=== PATIENT | female | born 1940 | race Two or more races ===

== ENCOUNTER 2025-03-05 12:48 | Inpatient (IN) | payer MEDICARE, OTHER ==
[~2025-03-05] VITALS: Ht 162.6 cm; Wt 85.4 kg
--- NOTE | 2025-03-05 13:01 | ED.PDOC ---
SOB-HPI HPI Comments 85 y/o F, with PMHx of DM and CAD presents to the ED for CC of shortness of breath. Patient states, she has been experiencing symptoms of nasal drainage, cough, and shortness of breath x6days. Patient reports, to have experienced similar symptoms in the past d/t sinusitis. Patient denies fever, chills, sore- throat, headache, palpitations, or chest pain. No other symptoms or modifying factors are present at this time. Chief Complaint: Shortness of Breath Time Seen by MD: 13:00 Primary Care Provider: RACHANA Macias notes: Nurses Notes, Medications, Allergies Information Source: Patient Mode of Arrival: Ambulatory Severity: Moderate Timing: Days Duration: Since onset Context: At Rest PE Risk Factors: None History of: None Prehospital treatment: None Modifying Factors: Nothing Associated Signs and Symptoms: Cough, Nasal Congestion Past Medical History PAST MEDICAL HISTORY: CAD, DM Surgical History: Denies all surgeries SIGNAL MAINTAINER HELPER History: Denies all SIGNAL MAINTAINER HELPER Hx Family History Family History: Unknown Social History Smoker: Non-Smoker Alcohol: Denies ETOH Use Drugs: Denies Drug Use Lives In: Home Constitutional: denies: chills, diaphoresis, fatigue, fever, malaise, sweats, weakness, others EENTM: reports: nasal discharge; denies: blurred vision, double vision, ear bleeding, ear discharge, ear drainage, ear pain, ear ringing, eye pain, eye redness, hearing loss, mouth pain, mouth swelling, nose bleeding, nose congestion, nose pain, photophobia, tearing, throat pain, throat swelling, voice changes, others Respiratory: reports: cough, shortness of breath; denies: hemoptysis, orthopnea, SOB at rest, SOB with excertion, stridor, wheezing, others Cardiovascular: denies: chest pain, dizzy spells, diaphoresis, Dyspnea on exertion, edema, irregular heart beat, left arm pain, lightheadedness, palpitations, PND, syncope, others Gastrointestinal: denies: abdomen distended, abdominal pain, blood streaked bowels, constipated, diarrhea, dysphagia, difficulty swallowing, hematemesis, melena, nausea, poor appetite, poor fluid intake, rectal bleeding, rectal pain, vomiting, others Genitourinary: denies: abnormal vagina bleeding, burning, dyspareunia, dysuria, flank pain, frequency, hematuria, incontinence, pain, , vagina discharge, urgency, others Neurological: denies: dizziness, fainting, headache, left sided numbness, left sided weakness, numbness, paresthesia, pre-existing deficit, right sided numbness, right sided weakness, seizure, speech problems, tingling, tremors, weakness, others Musculoskeletal: denies: back pain, gout, joint pain, joint swelling, muscle pain, muscle stiffness, neck pain, others Integumetry: denies: bruises, change in color, change in hair/nails, dryness, laceration, lesions, lumps, rash, wounds, others Allergic/Immunocompromised: denies: Difficulty Healing, Frequent Infections, Hives, Itching, others Hematologic/Lymphatic: denies: anemia, blood clots, easy bleeding, easy bruising, swollen glands, others Endocrine: denies: excessive hunger, excessive sweating, excessive thirst, excessive urination, flushing, intolerance to cold, intolerance to heat, unexplained weight gain, unexplained weight loss, others Psychiatric: denies: anxiety, bipolar disorder, depression, hopeless, panic disorder, schizophrenia, sleepless, suicidal, others All Other Systems: Reviewed and Negative Physical Exam General Appearance: No Apparent Distress, Normal HEENT: Normal ENT Inspection, Pharynx Normal Neck: Full Range of Motion, Non-Tender, Normal, Normal Inspection Respiratory: Chest Non-Tender, Lungs Clear, No Accessory Muscle Use, No Respiratory Distress, Other (TACHYPNEIC) Cardiovascular: No Edema, No Murmur, No Gallop, Normal Peripheral Pulses, Regular Rate/Rhythm Breast Exam: Deferred Gastrointestinal: No Organomegaly, Non Tender, No Pulsatile Mass, Normal Bowel Sounds, Soft Genitalia: Deferred Pelvic: Deferred Rectal: Deferred Extremities: No calf tenderness, Normal capillary refill, Normal inspection, Normal range of motion, Non-tender, No pedal edema Musculoskeletal : Apperance: Normal Neurologic: Alert, bologna lacer II-XII nml as Tested, No Motor Deficits, Normal Affect, Normal Mood, No Sensory Deficits Cerebellar Function: Normal Reflexes: Normal Skin: Dry, Normal Color, Warm Lymphatic: No Adenopathy Was a procedure done? Was a procedure done?: No Differential Dx Differential Diagnosis: Bronchitis, Pneumonia, Sinusitis, Pharyngitis, URI X-Ray, Labs, Meds, VS Vital Signs Date Time Temp Pulse Resp B/P (MAP) Pulse Ox O2 Delivery O2 Flow Rate FiO2 03/05/25 16:03 68 18 156/61 (92) 97 03/05/25 12:54 97.8 69 22 151/81 97 97.8 Lab Test 03/05/25 14:21 03/05/25 13:27 Range/Units Troponin I High Sensitivity 11 13 </=34 ng/L White Blood Count 5.9 4.4-10.8 10^3/uL Red Blood Count 4.51 4.0-5.20 10^6/uL Hemoglobin 13.6 12.2-16.2 g/dL Hematocrit 41.0 36.0-46.0 % Mean Corpuscular Volume 91.0 80.0-100.0 fL Mean Corpuscular Hemoglobin 30.2 28.0-32.0 pg Mean Corpuscular Hemoglobin Concent 33.2 32.0-36.0 g/dL Red Cell Distribution Width 13.2 11.8-14.3 % Platelet Count 163 140-450 10^3/uL Mean Platelet Volume 8.4 6.9-10.8 fL Neutrophils (%) (Auto) 58.8 37.0-80.0 % Lymphocytes (%) (Auto) 28.8 10.0-50.0 % Monocytes (%) (Auto) 8.2 0.0-12.0 % Eosinophils (%) (Auto) 3.9 0.0-7.0 % Basophils (%) (Auto) 0.3 0.0-2.0 % Neutrophils # (Auto) 3.4 1.6-8.6 10 ^3/uL Lymphocytes # (Auto) 1.7 0.4-5.4 10 ^3/uL Monocytes # (Auto) 0.5 0-1.3 10 ^3/uL Eosinophils # (Auto) 0.2 0-0.8 10 ^3/uL Basophils # (Auto) 0 0-0.2 10 ^3/uL Nucleated Red Blood Cells 0.1 % Sodium Level 144 136-145 mmol/L Potassium Level 4.5 3.5-5.1 mmol/L Chloride Level 109 H 98-107 mmol/L Carbon Dioxide Level 25 20-31 mmol/L Anion Gap 10 5-15 Blood Urea Nitrogen 11 9-23 mg/dL Creatinine 1.12 H 0.550-1.02 mg/dL Glomerular Filtration Rate Calc 48 >90 mL/min BUN/Creatinine Ratio 9.8 L 10.0-20.0 Serum Glucose 132 H 74-106 mg/dL Calcium Level 9.7 8.7-10.4 mg/dL B-Type Natriuretic Peptide 65.31 0-100 pg/mL [address] [address] Ph: [phone] DIAGNOSTIC IMAGING Diagnostic Imaging Report : [id number] Signed PATIENT: JUANA MEJIA ACCT: [id number] UNIT: [id number] : 1940 LOC: ER ROOM / BED: / AGE / SEX: 85 / F ADM STATUS: REG ER SERVICE 1313 ORDERING PHYSICIAN: CALVIN ALEXANDER MD PROCEDURE(s): CXRP - CHEST PORTABLE REASON: sob ORDER NUMBER(s): [id number], ACCESSION NUMBER(s): [id number] CHEST RADIOGRAPH INDICATION: sob TECHNIQUE: Single frontal view of the chest was obtained COMPARISON: XR CHEST 1 VIEW on DOS: 10/02/24 FINDINGS: Lines and Tubes: None Lungs: No focal consolidation. Diffuse reticular opacities may reflect atypical pneumonia versus mild interstitial edema. Pleura: No effusion. No pneumothorax. Cardiomediastinal contours: Unremarkable Bones: No acute osseous abnormality. IMPRESSION: 1. Diffuse reticular opacities may reflect atypical pneumonia versus mild interstitial edema. ATED BY: MIMI DORANTES MD DICTATED DATE/TIME: 03/05/251358 SIGNED BY: MIMI DORANTES MD SIGNED DATE/TIME: 03/05/25 1359 CC: Time of 1ST Reevaluation: 13:30 Reevaluation 1ST: Unchanged Patient Education/Counseling: Diagnosis, Treatment Family Education/Counseling: No Family Present SEPSIS Sepsis Screen Physician Orders Chest Portable (03/05/25 13:13) Electrocardigram (03/05/25 13:13) Troponin-I Hs (03/05/25 16:13) Electrocardigram (03/05/25 14:13) Electrocardigram (03/05/25 16:13) Vital Signs Date Time Temp Pulse Resp B/P (MAP) Pulse Ox O2 Delivery O2 Flow Rate FiO2 03/05/25 16:03 68 18 156/61 (92) 97 03/05/25 12:54 97.8 69 22 151/81 97 97.8 Laboratory Tests Test 03/05/25 13:27 White Blood Count 5.9 10^3/uL (4.4-10.8) Departure 1 Departure Time of Disposition: 17:08 (Patient with a worsening shortness of breath concerning for atypical pneumonia. Patient we will empirically started on antibiotics. Patient we will not be given the fall IV fluid bolus as patient appears clinically volume overloaded. We will admit patient for further workup and expert consultation) Impression: Primary Impression: Pneumonia Additional Impression: Acute dyspnea Disposition: ADMITTED INPATIENT Admit to: Tele Condition: Guarded Critical Care Note Critical Care Time?: Yes Critical care comment: Suspected sepsis Authorized and Performed by: Calvin Alexander MD Total critical care time: Approximately 39 minutes Due to a high probability of clinically significant, life threatening deterioration, the patient required my highest level of preparedness to intervene emergently and I personally spent this critical care time directly and personally managing the patient. This critical care time included obtaining a history; examining the patient; pulse oximetry; ordering and review of studies; arranging urgent treatment with development of a management plan; evaluation of patient's response to treatment; frequent reassessment; and, discussions with other providers. This critical care time was performed to assess and manage the high probability of imminent, life-threatening deterioration that could result in multi-organ failure. It was exclusive of separately billable procedures and treating other patients and teaching time. Please see my other sections and the rest of the note for further information on patient assessment and treatment. Stability Stability form required: No Heart Score Heart Score: Heart Score Response (Comments) Value History N/A 0 EKG N/A 0 Age N/A 0 Risk Factors N/A 0 Troponin N/A 0 Total 0 I personally scribed for CALVIN ALEXANDER MD ([email or web address]) on 03/05/25 at 13:01. Electronically submitted by Christine Gilbert ([email or web address]). I personally scribed for CALVIN ALEXANDER MD ([email or web address]) on 03/05/25 at 13:07. Electronically submitted by Christine Gilbert ([email or web address]). I personally scribed for CALVIN ALEXANDER MD ([email or web address]) on 03/05/25 at 13:19. Electronically submitted by Christine Gilbert ([email or web address]). I personally scribed for CALVIN ALEXANDER MD ([email or web address]) on 03/05/25 at 13:21. Electronically submitted by Christine Gilbert ([email or web address]). I personally scribed for CALVIN ALEXANDER MD ([email or web address]) on 03/05/25 at 14:23. Electronically submitted by Christine Gilbert ([email or web address]). CALVIN ALEXANDER MD Mar 05, 2025 13:01
[2025-03-05 13:39] LABS: Hematocrit 41.0 % (36.0-46.0); Hemoglobin 13.6 g/dL (12.2-16.2); Mean Corpuscular Hemoglobin 30.2 pg (28.0-32.0); Mean Corpuscular Volume 91.0 fL (80.0-100.0); Nucleated Red Blood Cells % 0.1 %
[2025-03-05 13:48] LABS: Potassium 4.5 mmol/L (3.5-5.1); Sodium 144 mmol/L (136-145)
[2025-03-05 13:49] LABS: Anion Gap 10 (5-15); Calcium 9.7 mg/dL (8.7-10.4); Carbon Dioxide 25 mmol/L (20-31)
[2025-03-05 13:54] LABS: BUN/Creatinine Ratio 9.8 (10.0-20.0); Blood Urea Nitrogen 11 mg/dL (9-23); Chloride 109 mmol/L (98-107); Glucose 132 mg/dL (74-106)
--- NOTE | 2025-03-05 14:01 | DVH ---
CHEST RADIOGRAPH INDICATION: sob TECHNIQUE: Single frontal view of the chest was obtained COMPARISON: XR CHEST 1 VIEW on DOS: 10/02/24 FINDINGS: Lines and Tubes: None Lungs: No focal consolidation. Diffuse reticular opacities may reflect atypical pneumonia versus mild interstitial edema. Pleura: No effusion. No pneumothorax. Cardiomediastinal contours: Unremarkable Bones: No acute osseous abnormality. IMPRESSION: 1. Diffuse reticular opacities may reflect atypical pneumonia versus mild interstitial edema.
[2025-03-05 19:35] VITALS: RESP 18; O2SAT 99
[2025-03-05] MEDS: AZITHROMYCIN 250 MG TAB PO ONE (19:47)
[2025-03-05] MEDS: CEFEPIME 2GM/50ML NS 50 ML IV ONE (20:05)
[2025-03-05] MEDS ORDERED: ONDANSETRON HCL 4 MG/2 ML VIAL IV PRN (22:15)
[2025-03-05 22:36] VITALS: BP 155/61; PULSE 77; RESP 20; O2SAT 100
[2025-03-06] VITALS: TEMP 99.2
[2025-03-06] MEDS: ACETAMINOPHEN 325 MG TAB PO SCH
[2025-03-06 00:18] LABS: INR 1.04 (0.9-1.15); Partial Thromboplastin Time 24.3 SEC (24.5-34.5); Prothrombin Time 11.0 sec (9.3-11.8)
[2025-03-06] MEDS ORDERED: ATOR40TA52 PO (00:41)
[2025-03-06] MEDS ORDERED: DEXTROSE (50%) 50ML SYRG IV PRN (00:45)
--- NOTE | 2025-03-06 00:46 | DVHHPRES ---
History of Present Illness Resident Creating Document: NEMO GOODMAN RESIDENT History of Present Illness Patient is a 85-year-old female with past medical history of insulin-dependent diabetes mellitus, hyperlipidemia, sinusitis, CAD status post 1 stent placement, who presented to the ED with chief complaints of shortness of breath, cough associated with fever, chills, nausea, chest tightness since 6 days. Patient also complains of nasal congestion and postnasal drip since 3 days. Patient reports to have similar symptoms in the past due to sinusitis. Patient denies any sore throat, headaches, chest pain, palpitations, nausea, vomiting, hematemesis, hemoptysis, dysuria. PMHx: Diabetes mellitus, CAD, sinusitis, hyperlipidemia PSHx: denies Family history: reviewed, noncontributory Social history: denies smoking, drinking, drug use Home medication: insulin 25, atorvastatin, aspirin, gabapentin, metoprolol succinate Allergic history: denies Patient seen in the lobby. Patient complains of shortness of breath and cough associated with sputum, and chest tightness. patient is on 2 L oxygen, denies home oxygen use. patient denies any fever, chills, nausea, vomiting, hemoptysis, chest pain, palpitations, headaches. Review of Systems Constitutional: No: Fever, Chills, Sweats, Weakness, Malaise, Other Eyes: No: Pain, Vision change, Conjunctivae inflammation, Eyelid inflammation, Other, Redness ENT: No: Ear pain, Ear discharge, Nose pain, Nose discharge, Nose congestion, Mouth pain, Mouth swelling, Throat pain, Throat swelling, Other Respiratory: Cough, Shortness of breath, SOB with excertion, Sputum; No: Dry, Wheezing, Hemoptysis, Pleuritic Pain, Wheezing, Other Cardiovascular: No: Chest Pain, Palpitations, Orthopnea, Paroxysmal Noc. Dyspnea, Edema, Lt Headedness, Other Gastrointestinal: No: Nausea, Vomiting, Abdominal Pain, Diarrhea, Constipation, Melena, Hematochezia, Other Genitourinary: No Dysuria, No Frequency, No Incontinence, No Hematuria, No Retention, No Other Musculoskeletal: No: other, neck pain, shoulder pain, arm pain, back pain, hand pain, leg pain, foot pain Skin: No: Rash, Lesions, Jaundice, Bruising, Other Neurological: No: Weakness, Numbness, Incoordination, Change in speech, Confusion, Seizures, Other Allergies: Coded Allergies: UNOBTAINABLE (Unverified , 06/19/14) PLEASE UPDATE PT'S ALLERGY ON THE COMPUTER. HOLD ANY ACTIVE MEDICATIONS THAT PT HAD SEVERE ALLERGY TO Medications Current Medications Medications Dose Ordered Sig/[place] Route Start Time Stop Time Status Last Admin Dose Admin Ondansetron HCl 4 mg Q4HP PRN IV 03/05/25 22:15 Enoxaparin Sodium 40 mg DAILY SC 03/06/25 10:00 Acetaminophen 650 mg Q6HR PO 03/06/25 00:00 03/06/25 00:00 650 MG Exam Vital Signs Vital Signs Date Time Temp Pulse Resp B/P (MAP) Pulse Ox O2 Delivery O2 Flow Rate FiO2 03/06/25 00:00 99.2 03/05/25 22:36 77 20 155/61 (92) 100 03/05/25 19:35 Nasal Cannula* 2 28 Exam General: Patient alert and oriented in person, place and time. Patient following commands. HEENT: Normocephalic, atraumatic, moist mucous membranes Respiratory/pulmonary: Bilateral crackles heard on auscultation Cardiovascular: Normal heart sounds S1 and S2 with no associated murmurs Abdomen: Abdomen nondistended, there is no pain to palpation in any of the abdominal quadrants, no palpable masses. Extremities: There is no peripheral edema present at the lower extremities. Peripheral Pulses: 3+ Radial (R). 3+ Radial (L). 3+ Dorsalis pedis (R). 3+ Dorsalis pedis(L) Skin: No rashes or pruritus, there is no sacral edema present at this time. Neurological: Intact cranial nerves with no focal neurologic deficits Labs/Xrays Labs Test 03/05/25 23:46 03/05/25 18:43 03/05/25 17:03 03/05/25 13:27 Range/Units Prothrombin Time 11.0 9.3-11.8 sec Prothrombin Time INR 1.04 0.9-1.15 Activated Partial Thromboplast Time 24.3 L 24.5-34.5 SEC Lactic Acid Level 1.9 0.4-2.0 mmol/L Magnesium Level 2.0 1.6-2.6 mg/dL Troponin I High Sensitivity 9 </=34 ng/L White Blood Count 5.9 4.4-10.8 10^3/uL Red Blood Count 4.51 4.0-5.20 10^6/uL Hemoglobin 13.6 12.2-16.2 g/dL Hematocrit 41.0 36.0-46.0 % Mean Corpuscular Volume 91.0 80.0-100.0 fL Mean Corpuscular Hemoglobin 30.2 28.0-32.0 pg Mean Corpuscular Hemoglobin Concent 33.2 32.0-36.0 g/dL Red Cell Distribution Width 13.2 11.8-14.3 % Platelet Count 163 140-450 10^3/uL Mean Platelet Volume 8.4 6.9-10.8 fL Neutrophils (%) (Auto) 58.8 37.0-80.0 % Lymphocytes (%) (Auto) 28.8 10.0-50.0 % Monocytes (%) (Auto) 8.2 0.0-12.0 % Eosinophils (%) (Auto) 3.9 0.0-7.0 % Basophils (%) (Auto) 0.3 0.0-2.0 % Neutrophils # (Auto) 3.4 1.6-8.6 10 ^3/uL Lymphocytes # (Auto) 1.7 0.4-5.4 10 ^3/uL Monocytes # (Auto) 0.5 0-1.3 10 ^3/uL Eosinophils # (Auto) 0.2 0-0.8 10 ^3/uL Basophils # (Auto) 0 0-0.2 10 ^3/uL Nucleated Red Blood Cells 0.1 % Sodium Level 144 136-145 mmol/L Potassium Level 4.5 3.5-5.1 mmol/L Chloride Level 109 H 98-107 mmol/L Carbon Dioxide Level 25 20-31 mmol/L Anion Gap 10 5-15 Blood Urea Nitrogen 11 9-23 mg/dL Creatinine 1.12 H 0.550-1.02 mg/dL Glomerular Filtration Rate Calc 48 >90 mL/min BUN/Creatinine Ratio 9.8 L 10.0-20.0 Serum Glucose 132 H 74-106 mg/dL Calcium Level 9.7 8.7-10.4 mg/dL B-Type Natriuretic Peptide 65.31 0-100 pg/mL SEPSIS Sepsis Screen Date sepsis recognized/suspect: Mar 05, 2025 Time Sepsis recognized/suspect: 1936 Recent Procedure: No On Antibiotic Therapy: No Respiratory Rate >20: No Heart Rate >90: No Temp<36 C (96.8 F) or >38.3 C: No SBP <90 or MAP <65 mmHG: No New Acute Mental Status Change: No Is the patient on CPAP, BIPAP,: No Physician Orders Blood Culture (03/05/25 17:05) Admit (03/05/25 22:12) Ondansetron Hcl (Zofran) (03/05/25 22:15) Enoxaparin Sodium (Lovenox) (03/06/25 10:00) Complete Blood Count (03/06/25 04:00) Comprehensive Metabolic Panel (03/06/25 04:00) Condition: Serious (03/05/25 22:12) Acetaminophen Tablet (Tylenol Tablet) (03/06/25 00:00) Bedrest With Bathroom Privileg (03/05/25 22:12) Oxygen By Nasal Cannula (03/05/25 22:12) Stat Ekg For Chest Pain (03/05/25 22:12) Notify Md Of Changes From Base (03/05/25 22:12) Roll Changer For 24 Hours (03/05/25 22:12) Emergency Dysrhythmia Protocol (03/05/25 22:12) Rhythm Strips Once Every Shift (03/05/25 22:12) Covid19 Antigen Geovanna (03/05/25 ) Rapid Influenza A&B (03/05/25 22:12) Respiratory Culture W/ Gs (03/05/25 22:12) Urinalysis (03/05/25 23:31) Drug Screen (03/05/25 23:31) Ceftriaxone 2gm/50ml (Rocephin 2gm/50ml) (03/06/25 10:00) Azithromycin Tablet (Zithromax Tablet) (03/06/25 10:00) Albuterol Medneb (Ventolin Medneb) (03/06/25 06:00) Ipratropium Medneb (Atrovent Medneb) (03/06/25 06:00) Insulin Lantus (Glargine) (Lantus) (03/06/25 22:00) Glucose Blood (Accu-Chek Comfort Curve T (03/06/25 07:00) Insulin R (Human) (Insulin R) (03/06/25 22:00) Insulin R (Human) (Insulin R) (03/06/25 07:00) Dextrose 50% Syringe (03/06/25 00:45) Hemoglobin A1c (03/06/25 00:36) Thyroid Stimulating Hormone (03/06/25 00:36) Lipid Panel (03/06/25 00:36) Vitamin D, 25-Hydroxy (03/06/25 00:36) Atorvastatin (Lipitor) (03/06/25 22:00) Pantoprazole Tablet (Protonix Tablet) (03/06/25 06:00) Consistent Carb(Ccho)Diabetes (03/06/25 Breakfast) Vital Signs Date Time Temp Pulse Resp B/P (MAP) Pulse Ox O2 Delivery O2 Flow Rate FiO2 03/06/25 00:00 99.2 03/05/25 22:36 99.3 77 20 155/61 (92) 100 99.3 03/05/25 19:35 18 99 Nasal Cannula* 2 28 03/05/25 18:34 72 18 146/70 (95) 99 Laboratory Tests Test 03/05/25 13:27 03/05/25 18:43 White Blood Count 5.9 10^3/uL (4.4-10.8) Lactic Acid Level 1.9 mmol/L (0.4-2.0) Medications Medications Dose Ordered Sig/[place] Route Start Time Stop Time Status Last Admin Dose Admin Acetaminophen 650 mg Q6HR PO 03/06/25 00:00 03/06/25 00:00 650 MG Azithromycin 500 mg ONCE ONCE PO 03/05/25 17:15 03/05/25 17:16 DC 03/05/25 19:47 500 MG Cefepime HCl 50 ml @ 12.5 mls/hr ONCE ONCE IV 03/05/25 17:15 03/05/25 21:14 DC 03/05/25 20:05 12.5 MLS/HR Assessment/Plan Assessment/Plan Pneumonia Gram-positive/Gram-negative - chest x-ray showed Diffuse reticular opacities may reflect atypical pneumonia versus mild interstitial edema. - IV ceftriaxone - azithromycin - albuterol, ipratropium med neb - check COVID, influenza - check sputum culture Diabetes mellitus HbA1c - Lantus 25, moderate insulin sliding scale Hyperlipidemia - atorvastatin Morbid obesity BMI 32.3 - patient counseled on diet, exercise, lifestyle modification for 18 minutes Diet: consistent carbohydrate PPI prophylaxis: Protonix DVT prophylaxis: Lovenox Goals of care addressed with the patient for more than 27 minutes: Full code status Case discussed with Dr. Self , patient and nurse Plan discussed with: Patient My Orders Orders - NEMO GOODMAN RESIDENT Procedure Category Date Status Time Admit ADMIT 03/05/25 Transmitted 22:12 Ondansetron Hcl PHA 03/05/25 In Process (Zofran) 22:15 Enoxaparin Sodium PHA 03/06/25 In Process (Lovenox) 10:00 Complete Blood Count LAB 03/06/25 Logged 04:00 Comprehensive LAB 03/06/25 Logged Metabolic Panel 04:00 Condition: Serious [facility] 03/05/25 In Process 22:12 Acetaminophen Tablet PHA 03/06/25 In Process (Tylenol Tablet) 00:00 Bedrest With Bathroom [facility] 03/05/25 In Process Privileg 22:12 Oxygen By Nasal RT 03/05/25 Transmitted Cannula 22:12 Stat Ekg For Chest [facility] 03/05/25 In Process Pain 22:12 Notify Md Of Changes [facility] 03/05/25 In Process From Base 22:12 Roll Changer For [facility] 03/05/25 In Process 24 Hours 22:12 Emergency Dysrhythmia [facility] 03/05/25 In Process Protocol 22:12 Rhythm Strips Once [facility] 03/05/25 In Process Every Shift 22:12 Covid19 Antigen Geovanna LAB 03/05/25 Logged Rapid Influenza A&B LAB 03/05/25 Logged 22:12 Respiratory Culture YUDY 03/05/25 Logged W/ Gs 22:12 Urinalysis LAB 03/05/25 Logged 23:31 Drug Screen LAB 03/05/25 Logged 23:31 Ceftriaxone 2gm/50ml PHA 03/06/25 Logged (Rocephin 2gm/50ml) 10:00 Azithromycin Tablet PHA 03/06/25 Logged (Zithromax Tablet) 10:00 Albuterol Medneb PHA 03/06/25 Logged (Ventolin Medneb) 06:00 Ipratropium Medneb PHA 03/06/25 Logged (Atrovent Medneb) 06:00 Insulin Lantus PHA 03/06/25 Logged (Glargine) (Lantus) 22:00 Glucose Blood PHA 03/06/25 Logged (Accu-Chek Comfort 07:00 Insulin R (Human) PHA 03/06/25 Logged (Insulin R) 22:00 Insulin R (Human) PHA 03/06/25 Logged (Insulin R) 07:00 Dextrose 50% Syringe PHA 03/06/25 Logged 00:45 Hemoglobin A1c LAB 03/06/25 Logged 00:36 Thyroid Stimulating LAB 03/06/25 Logged Hormone 00:36 Lipid Panel LAB 03/06/25 Logged 00:36 Vitamin D, 25-Hydroxy LAB 03/06/25 Logged 00:36 Atorvastatin (Lipitor) PHA 03/06/25 Logged 22:00 Pantoprazole Tablet PHA 03/06/25 Transmitted (Protonix Tablet) 06:00 Consistent DIET 03/06/25 Transmitted Carb(Ccho)Diabetes Breakfast Visit Coding STANDARD RES Billing Provider: TEODORO CABALLERO MD Date of Service if different f: Mar 05, 2025 Common Visit Codes: [id number] INP/OBS CARE (HIGH) Secondary Visit Codes: [id number] CARE PLAN 30 MINUTES NEMO GOODMAN RESIDENT Mar 06, 2025 00:46
[2025-03-06 03:21] LABS: COVID19 ANTIGEN SOFIA FIA NEGATIVE (NEGATIVE)
--- NOTE | 2025-03-06 05:13 | DVHDSRES ---
Discharge Summary Date of Admission Resident Creating Document: NEMO GOODMAN Mar 05, 2025 at 22:12 Date of Discharge: Mar 06, 2025 Admitting Diagnosis Pneumonia Labs/Diagnostic Data: Laboratory Results Test 03/06/25 00:21 03/05/25 23:46 03/05/25 18:43 03/05/25 17:03 Influenza Type A Antigen Negative (Negative) Influenza Type B Antigen Negative (Negative) SARS-CoV-2 Antigen (Rapid) Negative (NEGATIVE) Prothrombin Time 11.0 sec (9.3-11.8) Prothrombin Time INR 1.04 (0.9-1.15) Activated Partial Thromboplast Time 24.3 SEC (24.5-34.5) Lactic Acid Level 1.9 mmol/L (0.4-2.0) Magnesium Level 2.0 mg/dL (1.6-2.6) Troponin I High Sensitivity 9 ng/L (</=34) Test 03/05/25 13:27 White Blood Count 5.9 10^3/uL (4.4-10.8) Red Blood Count 4.51 10^6/uL (4.0-5.20) Hemoglobin 13.6 g/dL (12.2-16.2) Hematocrit 41.0 % (36.0-46.0) Mean Corpuscular Volume 91.0 fL (80.0-100.0) Mean Corpuscular Hemoglobin 30.2 pg (28.0-32.0) Mean Corpuscular Hemoglobin Concent 33.2 g/dL (32.0-36.0) Red Cell Distribution Width 13.2 % (11.8-14.3) Platelet Count 163 10^3/uL (140-450) Mean Platelet Volume 8.4 fL (6.9-10.8) Neutrophils (%) (Auto) 58.8 % (37.0-80.0) Lymphocytes (%) (Auto) 28.8 % (10.0-50.0) Monocytes (%) (Auto) 8.2 % (0.0-12.0) Eosinophils (%) (Auto) 3.9 % (0.0-7.0) Basophils (%) (Auto) 0.3 % (0.0-2.0) Neutrophils # (Auto) 3.4 10 ^3/uL (1.6-8.6) Lymphocytes # (Auto) 1.7 10 ^3/uL (0.4-5.4) Monocytes # (Auto) 0.5 10 ^3/uL (0-1.3) Eosinophils # (Auto) 0.2 10 ^3/uL (0-0.8) Basophils # (Auto) 0 10 ^3/uL (0-0.2) Nucleated Red Blood Cells 0.1 % Sodium Level 144 mmol/L (136-145) Potassium Level 4.5 mmol/L (3.5-5.1) Chloride Level 109 mmol/L (98-107) Carbon Dioxide Level 25 mmol/L (20-31) Anion Gap 10 (5-15) Blood Urea Nitrogen 11 mg/dL (9-23) Creatinine 1.12 mg/dL (0.550-1.02) Glomerular Filtration Rate Calc 48 mL/min (>90) BUN/Creatinine Ratio 9.8 (10.0-20.0) Serum Glucose 132 mg/dL (74-106) Calcium Level 9.7 mg/dL (8.7-10.4) B-Type Natriuretic Peptide 65.31 pg/mL (0-100) Other Laboratory Tests 03/05/25 13:27 Brief Hx & Hospital Course: Patient is a 85-year-old female with past medical history of insulin-dependent diabetes mellitus, hyperlipidemia, sinusitis, CAD status post 1 stent placement, who presented to the ED with chief complaints of shortness of breath, cough associated with fever, chills, nausea, chest tightness since 6 days. Patient also complains of nasal congestion and postnasal drip since 3 days. Patient reports to have similar symptoms in the past due to sinusitis. Patient denies any sore throat, headaches, chest pain, palpitations, nausea, vomiting, hematemesis, hemoptysis, dysuria. PMHx: Diabetes mellitus, CAD, sinusitis, hyperlipidemia PSHx: denies Family history: reviewed, noncontributory Social history: denies smoking, drinking, drug use Home medication: insulin 25, atorvastatin, aspirin, gabapentin, metoprolol succinate Allergic history: denies hospital course: patient had pneumonia, chest x-ray showed Diffuse reticular opacities may reflect atypical pneumonia versus mild interstitial edema. patient was given IV ceftriaxone, azithromycin, albuterol, ipratropium med nebs. was negative for influenza, COVID. patient had diabetes mellitus for which Lantus 25, insulin sliding scale was started. Patient had hyperlipidemia for which atorvastatin was given. Patient was morbidly obese and was counseled on diet, exercise, lifestyle modification for 18 minutes. patient wanted to leave AMA, Patient advised of the risks and benefits of leaving AMA. Patient verbalized understanding. Patient encouraged to return to the ER if symptoms do not improve or worsen. Operations or Procedures DIAGNOSTIC IMAGING Diagnostic Imaging Report : [id number] Signed PATIENT: JUANA MEJIA ACCT: [id number] UNIT: [id number] : 1940 LOC: ER ROOM / BED: / AGE / SEX: 85 / F ADM STATUS: REG ER SERVICE [id number] ORDERING PHYSICIAN: CALVIN LUCIO MD PROCEDURE(s): CXRP - CHEST PORTABLE REASON: sob ORDER NUMBER(s): [id number], ACCESSION NUMBER(s): [id number] CHEST RADIOGRAPH INDICATION: sob TECHNIQUE: Single frontal view of the chest was obtained COMPARISON: XR CHEST 1 VIEW on DOS: 10/02/24 FINDINGS: Lines and Tubes: None Lungs: No focal consolidation. Diffuse reticular opacities may reflect atypical pneumonia versus mild interstitial edema. Pleura: No effusion. No pneumothorax. Cardiomediastinal contours: Unremarkable Bones: No acute osseous abnormality. IMPRESSION: 1. Diffuse reticular opacities may reflect atypical pneumonia versus mild interstitial edema. ATED BY: MIMI DORANTES MD DICTATED DATE/TIME: 03/05/25 1359 SIGNED BY: MIMI DORANTES MD SIGNED DATE/TIME: 03/05/25 1359 CC: Condition at Discharge: Undetermined Final Diagnosis/Problems List Pneumonia likely Gram-positive was Gram-negative Diabetes mellitus Hyperlipidemia Morbid Obesity 32.3 Discharge Disposition: AMA Discharge Instruct/Medications Scheduled Atorvastatin Calcium (Atorvastatin Calcium), 1 TAB PO DAILY, (Reported) Discharge Statement: "Patient was advised to return to the ER or call 911 if any headaches, dizziness, shortness of breath, chest pain, abdominal pain, bleeding, fevers, or worsening of medical condition. Patient was counseled about treatment plan, medications, possible side effects, patientverbalized understanding. All questions were answered to the best of my ability. This discharge took greater then 30 minutes in planning, reviewing documentation, counseling the patient, and discussing with other team members." ASSESSMENT ASSESSMENT Assessment Visit Coding STANDARD RES Billing Provider: TEODORO CABALLERO MD Date of Service if different f: Mar 06, 2025 Common Visit Codes: 79616-WGX/OBS DISCH DAY >30min NEMO GOODMAN RESIDENT Mar 06, 2025 05:13 TEODORO CABALLERO MD Mar 10, 2025 20:31
[2025-03-06] MEDS ORDERED: PANTOPRAZOLE 40 MG TAB PO SCH (06:00)
[2025-03-06] MEDS ORDERED: IPRATROPIUM BROM 0.5 MG/2.5ML INH SOL NEB SCH (06:00)
[2025-03-06] MEDS ORDERED: ALBUTEROL SULF 2.5 MG/0.5ML(0.5%) NEB SOLN NEB SCH (06:00)
[2025-03-06] MEDS ORDERED: ACCU-CHEK COMFORT CURVE STRIP VI SCH (07:00)
[2025-03-06] MEDS ORDERED: InsuLIN REG 1unit/0.01ml Soln (100units/ml) SC SCH ×2 (07:00→22:00)
[2025-03-06] MEDS ORDERED: ENOXAPARIN SOD 40 MG/0.4 ML SYRINGE SC SCH (10:00)
[2025-03-06] MEDS ORDERED: AZITHROMYCIN 250 MG TAB PO SCH (17:00)
[2025-03-06] MEDS ORDERED: INSULIN LANTUS (GLARGINE) 1 /0.01ml (100units/ml) SC SCH (22:00)
[2025-03-06] MEDS ORDERED: ATORVASTATIN 20 MG TAB PO SCH (22:00)
== END 2025-03-06 04:04 | disposition left against medical advice (07) | DRG 179 ==
LOC: ER 12:48 → OVERFLOW 22:12 → WEST WING 03-06 03:55
DX: J15.69 Pneumonia due to other Gram-negative bacteria (principal); E11.9 Type 2 diabetes mellitus without complications; J15.9 Unspecified bacterial pneumonia; E66.01 Morbid (severe) obesity due to excess calories; E78.5 Hyperlipidemia, unspecified; Z20.822 Contact with and (suspected) exposure to COVID-19; Z68.32 Body mass index [BMI] 32.0-32.9, adult; I25.10 Atherosclerotic heart disease of native coronary artery without angina pectoris; Z53.29 Procedure and treatment not carried out because of patient's decision for other reasons
CPT/HCPCS: 36415; 71045; 80048; 83605; 83735; 83880; 84484; 85025; 85610; 85730; 87040; 87426; 87804; 96365; 99291; G0378; J0692